=== PATIENT | male | born 1995 | race Caucasian/White ===

== ENCOUNTER 2024-05-10 11:42 | Day surgery (SDC) | payer OTHER ==
[2024-05-07 15:08] VITALS: BMI 35.9
[~2024-05-10 11:42] MED LIST: LIDOCAINE 1% (10MG/ML) FOR IV START INTRADERMA PRN
[2024-05-10 13:20] VITALS: TEMP 97.5
[2024-05-10] MEDS: IV FLUID CONTINUATION 1,000 ML IV ONE ×2 (13:26)
[2024-05-10] MEDS: LACTATED RINGERS 1,000 ML IV SCH (13:27)
[2024-05-10] MEDS ORDERED: LIDOCAINE 1% INJ 10MG/ML (20 ML MDV) ONE (14:02)
[2024-05-10] MEDS ORDERED: PROPOFOL 10 MG/ML 20 ML VIAL IV ONE (14:02)
--- NOTE | 2024-05-10 14:25 | P.PCN ---
Date of Procedure: 05/10/24 Procedure(s) Performed: BRIEF HISTORY: Patient is a 29-year-old pleasant male scheduled for an elective colonoscopy as a part of evaluation of intermittent rectal bleeding and diarrhea for the last 2 months duration. PROCEDURE PERFORMED: Colonoscopy with snare polypectomy. PREOPERATIVE DIAGNOSIS: Intermittent rectal bleeding. IV sedation per Anesthesia. PROCEDURE: After informed consent was obtained, the patient, was brought into the endoscopy unit. IV sedation was administered by Anesthesia under continuous monitoring. Digital rectal examination was normal. Initially the Olympus CF-160 flexible video colonoscope was then inserted in the rectum, gradually advanced into the cecum without any difficulty. Careful examination was performed as the scope was gradually being withdrawn. Ileocecal valve and the appendiceal orifice were visualized and appeared normal. Prep was excellent. Mucosa of the cecum, ascending colon, transverse colon, descending colon, sigmoid colon, and rectum appeared normal. The mid rectum there was a 1 cm polyp that was removed by snare polypectomy. Scattered sigmoid diverticulosis seen. Retroflexion was performed in the rectum and small internal hemorrhoids were seen. The patient tolerated the procedure well. IMPRESSION: 1 cm mid rectal polyp status post snare polypectomy Small internal hemorrhoids Scattered sigmoid diverticula RECOMMENDATIONS: Findings of this examination were discussed with the patient as well as his family. He was advised to biopsy the biopsy reveals adenoma he can have repeat colonoscopy in 3 years. In the meantime was advised to be on high-fiber diet and take fiber supplements on a regular basis and avoid straining and constipation..
[2024-05-10 14:31] VITALS: RESP 16
[2024-05-10 15:04] VITALS: BP 132/83; PULSE 68
== END 2024-05-10 15:27 | disposition home or self-care (01) ==
LOC: ORWHC2ENDO 11:42
PROVIDERS: ATTEND Internal Medicine Gastroenterology
DX: K62.1 Rectal polyp (principal); K64.8 Other hemorrhoids; K57.30 Diverticulosis of large intestine without perforation or abscess without bleeding; F31.9 Bipolar disorder, unspecified; R56.9 Unspecified convulsions; Z79.899 Other long term (current) drug therapy; Z98.890 Other specified postprocedural states; Z88.0 Allergy status to penicillin
CPT/HCPCS: 88305; 45385; J2003; J2704

== ENCOUNTER → 2024-09-28 | Outpatient (CLI) | payer OTHER ==
[2024-09-28 19:48] LABS: Immunoglobulin M 90.3 mg/dL (40.0-280.0)
[2024-09-28 19:49] LABS: C Reactive Protein <0.30 mg/dL (0.00-0.80)
[2024-09-28 20:50] LABS: Cyclic Citrull Pep IgG Unit <1.5 U/mL (<=3.9); Cyclic Citrullinated Pep IgG Negative
[2024-09-28 22:57] LABS: Immunoglobulin E 7.87 IU/mL (0.00-114.00)
[2024-09-29 10:17] LABS: Aldolase 4.9 U/L (1.2-7.6)
== END | disposition home or self-care (01) ==
LOC: LABWHC1 13:09
PROVIDERS: ATTEND Internal Medicine
DX: R79.9 Abnormal finding of blood chemistry, unspecified (principal)
CPT/HCPCS: 36415; 82085; 82784; 82785; 85652; 86038; 86140; 86160; 86162; 86200; 86618